=== PATIENT | male | born 1990 | race Caucasian/White ===

== ENCOUNTER 2018-06-23 11:03 | Emergency (ER) | payer SELFPAY ==
--- NOTE | 2018-06-23 11:30 | EDPHY ---
General Time Seen by Provider: 06/23/18 11:13 Narrative: CHIEF COMPLAINT: Right foot pain HISTORY OF PRESENT ILLNESS: Patient presents by private vehicle with complaints of right foot pain. Pain started late last night after work. It is in the dorsum of the right foot only. It is minimal at rest. Moderate to severe with ambulation and palpation. Does not radiate. No numbness or tingling. No redness or warmth. No fever. No pain in the right knee, calf or heel. No direct trauma or injury. No previous incidence of this. No other associated complaints or modifying factors ESTABLISHED ORTHOPEDIST: None REVIEW OF SYSTEMS: Ten systems reviewed and are negative unless otherwise noted in the HPI PAST MEDICAL HISTORY: Uncomplicated PAST SURGICAL HISTORY: None SOCIAL HISTORY: Quit smoking less than 1 year ago. Occasional alcohol use. Works locally and lives independently. FAMILY HISTORY: EXAMINATION: General Appearance: Alert, no distress. Well appearing. Cardiovascular: DP and PT pulses are symmetric at 2+. There is good signs of perfusion of the right lower extremity. Neurological: A&O, light sensory symmetric, ankle and great toe strength symmetric. Normal proprioception of the great toes per Skin: Warm and dry, no rash no petechiae or purpura. No cellulitis. No fluctuance or induration Extremities: Mild tenderness over the insertion of the right peroneus tendons overlying the midfoot. There is no bony tenderness of the right calcaneus with firm palpation. No tenderness of the right knee, proximal fibula or hip. All compartments are soft with no evidence of DVT. Psychiatric: Mood and affect normal DIFFERENTIAL DIAGNOSES: Including but not limited to strain, sprain, fracture, Shipley's neuroma, cellulitis, gout MDM: 11:20 a.m. Right foot pain with no obvious injury yesterday. He does have reproducible tenderness over the insertion of the peroneus tendons on the dorsum of the foot. There is no bony tenderness of the ankle, grayson or knee. No bony tenderness of the right calcaneus. His range of motion is intact active and passive with active range of motion pain only. No evidence of DVT. No evidence of cellulitis or abscess. No evidence of osteomyelitis. Vital signs are within normal limits. He is in no acute distress. X-ray has been ordered. 11:40 a.m. X-ray as read by me, without radiologist, reveals no acute findings. 11:45 a.m. Patient re-evaluated. We discussed the possibility of sprain of the objects. We discussed weight-bearing as tolerated. We discussed ice and elevation. We discussed anti-inflammatories. We discussed follow up with orthopedist if no resolution next few days. We discussed ED precautions for worsening pain, redness, warmth or pain extending into the calf or leg. I have answered all his questions. He is comfortable this plan. Discharged home stable condition. SUPERVISION: This patient was independently evaluated without direct involvement of or examination by the attending physician. - Diagnostics Imaging Results: Imaging Impressions Foot X-Ray 06/23/18 11:19 Impression: Normal. No source for lateral pain identified. - History Smoking Status: Never smoked - Objective Vital Signs: Initial Vital Signs Temperature (C) 98.1 F 06/23/18 11:09 Heart Rate 87 06/23/18 11:09 Respiratory Rate 16 06/23/18 11:09 Blood Pressure 127/88 H 06/23/18 11:09 O2 Sat (%) 96 06/23/18 11:09 O2 Delivery Mode Room Air Allergies/Adverse Reactions: No Known Allergies Allergy (Unverified 06/23/18 11:12) Home Medications: Medication Instructions Recorded Indomethacin 75 mg PO DAILY #14 capsule.er 06/23/18 Departure - Departure Disposition: Home, Routine, Self-Care Clinical Impression: Unspecified sprain of right foot, initial encounter Condition: Good Instructions: Foot Sprain (ED) Additional Instructions: 1. Ice and elevate often 2. Weightbearing as tolerated with postoperative shoe as needed 3. Indomethacin as prescribed as needed for pain control. Do not combine this with any other [id number] anti-inflammatories 4. ED precautions for worsening pain, redness, fever, warmth 5. Contact and follow up with orthopedist next week if you do not have resolution of your symptoms Referrals: Everardo Kramer MD [Medical Doctor] - As per Instructions Stand Alone Forms: Work Excuse Prescriptions: Indomethacin 75 mg PO DAILY #14 capsule.er
[2018-06-23 12:20] VITALS: BP 126/91
--- NOTE | 2018-06-23 12:20 | ASMTLACE ---
LACE Length of stay for Answers: Less than 1 day current admission Acuity / Level of Answers: No Care: Did the patient have an inpatient admission? # of Emergency department Answers: 0 visits in the last 6 months Date Signed: 06/23/2018 12:20 PM Electronically Signed By:Yvonne Starks LCSW
== END 2018-06-23 12:19 | disposition home or self-care (01) ==
DX: S93.601A Unspecified sprain of right foot, initial encounter (principal); Y93.9 Activity, unspecified
CPT/HCPCS: L4386